=== PATIENT | male | born 1955 | race Caucasian/White ===

== ENCOUNTER → 2018-06-21 | Outpatient (CLI) | payer OTHER ==
[~2018-06-21] MED LIST: ATORVASTATIN CA40 MG PO; CO Q-10100 MG PO; LOSARTAN POTAS100 MG PO; MULTIVITAMINS PO; NORCO 7.5-3251 EACH PO; VITAMIN E400 UNIT PO; ZANAFLEX4 MG PO
== END ==
LOC: RAD 09:05
DX: M47.26 Other spondylosis with radiculopathy, lumbar region (principal); M43.17 Spondylolisthesis, lumbosacral region

== ENCOUNTER → 2018-06-28 | Outpatient (CLI) | payer OTHER ==
[~2018-06-28] VITALS: Ht 172.7 cm; Wt 72.6 kg
--- NOTE | ~2018-06-28 | PATH ---
[facility] [place] [address] PATHOLOGY RPT PROCEDURE Name: FRAN GARCIA Room #: [facility].#: [id number] Admission: 06/28/18 Date of : 51 Discharge: Report #: [id number] Path Case #: [id number] [facility] Accession Number: [id number] . 01 Material submitted: . BIOPSY OF POLYP AT HEPATIC FLEXURE . 01 Clinical history: . Pre-OP DX: Change in bowel habits Post-OP DX: Diverticulosis, colon polyp . 02 Diagnosis: Polyp, at hepatic flexure, endoscopic biopsy: - Lymphoid aggregate. - Negative for dysplasia or malignancy. (IUV:fire tender; 06/29/2018) MBR/06/29/2018 . 02 Electronically signed: . Joelle Celaya MD, Pathologist NPI- [id number] . 01 Gross description: . Received in formalin labeled "AlcidesFran gilman Jr, BX of polyp at hepatic flexure," is a single segment of mishra soft tissue measuring 0.3 cm in maximum dimension. The specimen is entirely submitted in cassette A1. (TSD; 06/28/2018) TOB/TOB . 02 Pathologist provided ICD-10: R19.4 . 02 CPT . 554965 Specimen Comment: A courtesy copy of this report has been sent to Specimen Comment: [phone], . Specimen Comment: Report sent to / DR CHILDS Performed at: [address], [place], [place] [id number] MD Fernando Arango MD Phone: [phone] Performed at: [address] [id number] MD Joelle Celaya MD Phone: [phone]
--- NOTE | ~2018-06-28 | P ---
[facility] [place] [address] PROCEDURE REPORT Name: CAROLA GARCIA JR Room #: [facility]#: [id number] Admission: 06/28/18 Attend Phys: Sumanth Goyal MD Discharge: Date of : 51 Report #: [id number] THIS REPORT FOR: //name// CC: Sumanth Kang BRIEF HISTORY: The patient is a 63-year-old male with recent change in bowel habits. Also, his father at age 70 had of colon cancer. PREOPERATIVE DIAGNOSES: Change in bowel habits and family history of colon cancer, father. POSTOPERATIVE DIAGNOSES: 1. Diminutive polyp, hepatic flexure. 2. Moderate sigmoid diverticulosis coli. MEDICATIONS: Deep sedation with propofol per Anesthesia. SPECIMEN: Polyp from hepatic flexure. ESTIMATED BLOOD LOSS: 3 mL. PROCEDURE: Colonoscopy to cecum and terminal ileum with biopsy. FINDINGS: Prior to propofol sedation, procedure of colonoscopy discussed with the patient as well as potential risks and its complications. He indicates he understands and desires to proceed. In addition, we attempted a colonoscopy on this patient about a week ago, but he returns today due to poor prep and inability to complete a colonoscopy due to a poor prep. With the patient in left lateral decubitus position, digital examination was completed, which revealed no abnormalities. Subsequently, the Olympus video colonoscope was introduced into the rectum, advanced under direct vision to the cecum. Done with minimal difficulty. The cecum was identified by the ileocecal valve and the appendiceal orifice. Due to looping the scope with difficulty across the ileocecal valve, but transiently was able to advance the scope in mouth, ileocecal valve and see a villous pattern. We could not advance the scope deeply into the terminal ileum. At that point, the scope was slowly withdrawn and careful circumferential views were obtained. As we withdrew the scope, the prep was good. There were some areas of greenish liquid material and some particulate matter. However, it was thin enough we were able to aspirate all the material through the scope. As we withdrew the scope, the mucosa was within normal limits, normal vascular pattern, normal light reflex. At the hepatic flexure, diminutive polyp was seen and removed by biopsy. Scope was further withdrawn and no additional neoplastic changes were seen. In view of his change in bowel habits, no obstructing lesions were seen. In the sigmoid [facility] [address] [place] [address] PROCEDURE REPORT Name: CAROLA GARCIA JR Room #: [facility]#: [id number] Admission: 06/28/18 Attend Phys: Sumanth Goyal MD Discharge: Date of : 51 Report #: [id number] colon, there was moderate diverticular disease without endoscopic evidence of diverticulitis. Scope was withdrawn in the rectum, no abnormalities were seen. Upon retroflexion, no abnormalities were noted. The scope was withdrawn. The patient tolerated the procedure well. CONDITION OF THE PATIENT UPON DISCHARGE: Following the procedure, the patient was drowsy, arousable, conversant and will be discharged home when fully ambulatory. INSTRUCTIONS TO THE PATIENT AND FAMILY AT THE TIME OF DISCHARGE: We will follow up on the path. However, in view of his family history and finding of polyp, suggest return in 5 years. I would also suggest high fiber diet for the diverticular disease. As far as his change in bowel habits and constipation, this in part may be related to use of hydrocodone. Initially, I suggested he use MiraLax, may use twice daily, may use it on a long-term basis. Another option would be use of Linzess 145 mcg daily. If he continues to have problems, he should return to see me in followup in the office. Failed colonoscopy about a week ago. Prior to that, his previous colonoscopy was 4-1/2 years ago. Withdrawal time from the cecum including cleanup was 16 minutes 22 seconds. By: [id number] Sumanth Goyal MD /luke
== END | disposition home or self-care (01) ==
LOC: GI 09:29
DX: K63.89 Other specified diseases of intestine (principal); K57.30 Diverticulosis of large intestine without perforation or abscess without bleeding; I10 Essential (primary) hypertension; E78.00 Pure hypercholesterolemia, unspecified; F17.210 Nicotine dependence, cigarettes, uncomplicated; Z80.0 Family history of malignant neoplasm of digestive organs; Z98.890 Other specified postprocedural states; Z79.891 Long term (current) use of opiate analgesic; Z79.899 Other long term (current) drug therapy
CPT/HCPCS: 62110; 62900

== ENCOUNTER → 2018-06-29 | Outpatient (CLI) | payer OTHER | LOC: MRI 12:30 | DX: M47.27 Other spondylosis with radiculopathy, lumbosacral region (principal); M51.16 Intervertebral disc disorders with radiculopathy, lumbar region; M48.07 Spinal stenosis, lumbosacral region; M43.17 Spondylolisthesis, lumbosacral region; R29.898 Other symptoms and signs involving the musculoskeletal system; R20.0 Anesthesia of skin ==